=== PATIENT | female | born 1935 | race Caucasian/White ===

== ENCOUNTER 2017-04-15 11:22 | Emergency (ER) | payer MEDICARE, OTHER ==
--- NOTE | 2017-04-15 11:38 | EDM.PDOC ---
ED HPI GENERAL MEDICAL PROBLEM - General Chief Complaint: General Stated Complaint: FLU LIKE SYMPTOMS Time Seen by Provider: 04/15/17 11:33 Source of Information: Reports: Patient - History of Present Illness INITIAL COMMENTS - FREE TEXT/NARRATIVE: Esthela is a pleasant 81 year old female, with PMH of type II diabetes mellitus, hypertension, hypothyroidism, and hyperlipidemia, who presents to the ED via [facility] with complaints of weakness and fatigue. She reports she felt she has had a fever and chills. She called EMS as she was unable to get out of bed this morning. She reports she is extremely weak. EMS reports it took a lifting team to get her out of bed. She denies any chest pain, shortness of breath, nausea, vomiting, diarrhea, abdominal pain, dysuria, urinary frequency, urgency , flank pain, back pain, cough, and nasal congestion. She reports that other than her fatigue and weakness she does not have any complaints. She denies any pain. Has not had any symptoms beside the weakness the last few days. Does report she has incontinence and has to straight cath herself "every once in awhile." She is unable to further elaborate on why, but I assume she has issues with urinary retention. She is incontinent of urine at time of ER presentation. Family reports she has been very weak for about 4-5 days. The past few days she has not been eating or drinking much. She has not been confused. Denies any other issues. She has not taken anything at home prior to ED presentation. She has had a decreased appetite and has only drank tomato juice and water the past few days. reports she is not very mobile at baseline. She does ambulate some with a FWW, but hasnt been able to the last few days. She reports in the last few weeks she has been treated with antibiotics for an infection to her left finger. She reports she finished the course of antibiotics and the redness and swelling have improved. Patient has not been seen in our clinic. Records are unobtainable. 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 She is a poor historian. Onset Date: 04/12/17 Duration: Getting Worse Location: Reports: Generalized Associated Symptoms: Reports: Loss of Appetite, Weakness. Denies: Confusion, Chest Pain, Cough, cough w sputum, Diaphoresis, Fever/Chills, Headaches, Malaise , Nausea/Vomiting, Rash, Seizure, Shortness of Breath, Syncope - Related Data Allergies Allergy/AdvReac Type Severity Reaction Status Date / Time meperidine [From Demerol] Allergy Nausea Verified 04/15/17 11:48 Home Meds: Home Meds Atenolol 50 mg PO DAILY 04/15/17 [History] Levothyroxine [Synthroid] 100 mg PO DAILY 04/15/17 [History] Lisinopril 40 mg PO DAILY 04/15/17 [History] Simvastatin [Zocor] 10 mg PO BEDTIME 04/15/17 [History] carBAMazepine [Carbamazepine ER] 200 mg PO BID 04/15/17 [History] metFORMIN HCl [Metformin HCl ER] 500 mg PO DAILY 04/15/17 [History] Past Medical History Cardiovascular History: Reports: High Cholesterol, Hypertension Genitourinary History: Reports: Retention, Urinary, Urinary Incontinence Endocrine/Metabolic History: Reports: Diabetes, Type II, Hypothyroidism - Past Surgical History GI Surgical History: Reports: Appendectomy, Cholecystectomy Musculoskeletal Surgical History: Reports: Knee Replacement (bilateral) Social & Family History - Family History Family Medical History: Noncontributory - Tobacco Use Smoking Status *Q: Never Smoker - Caffeine Use Caffeine Use: Reports: Coffee - Alcohol Use Alcohol Use Frequency: Rarely - Recreational Drug Use Recreational Drug Use: No ED ROS GENERAL - Review of Systems Review Of Systems: See Below Constitutional: Reports: Fever, Chills, Weakness, Fatigue, Decreased Appetite HEENT: Reports: No Symptoms. Denies: Ear Pain, Rhinitis, Sinus Problem, Throat Pain, Vertigo, Vision Change Respiratory: Reports: No Symptoms. Denies: Shortness of Breath, Wheezing, Pleuritic Chest Pain, Cough, Sputum, Hemoptysis Cardiovascular: Reports: Blood Pressure Problem, Lightheadedness. Denies: Chest Pain, Edema, Palpitations, Syncope Endocrine: Reports: Fatigue, High Glucose GI/Abdominal: Reports: Anorexia, Decreased Appetite, Other (hernia). Denies: Abdominal Pain, Constipation, Diarrhea, Hematochezia, Melena, Nausea, Vomiting : Reports: Incontinence, Urinary Retention. Denies: Dysuria, Flank Pain, Frequency, Pain, Urgency Musculoskeletal: Reports: No Symptoms. Denies: Neck Pain, Back Pain Skin: Reports: No Symptoms. Denies: Cyanosis, Pallor, Diaphoresis Neurological: Reports: Dizziness, Difficulty Walking, Weakness. Denies: Confusion, Headache, Numbness, Pre-Existing Deficit, Syncope, Tingling, Change in Speech, Gait Disturbance Psychiatric: Reports: No Symptoms Hematologic/Lymphatic: Reports: No Symptoms Immunologic: Reports: No Symptoms ED EXAM, GENERAL - Physical Exam Exam: See Below Exam Limited By: No Limitations General Appearance: Alert, WD/WN, No Apparent Distress Eye Exam: Bilateral Eye: EOMI, PERRL Ears: Normal External Exam, Normal Canal, Hearing Grossly Normal, Normal TMs Ear Exam: Bilateral Ear: TM normal Nose: Normal Inspection, Normal Mucosa, No Blood Throat/Mouth: Normal Inspection, Normal Lips, Normal Teeth, Normal Gums, Normal Oropharynx, Normal Voice, No Airway Compromise Head: Atraumatic, Normocephalic Neck: Normal Inspection, Supple, Non-Tender, Full Range of Motion Respiratory/Chest: No Respiratory Distress, Lungs Clear, Normal Breath Sounds, No Accessory Muscle Use, Chest Non-Tender Cardiovascular: Normal Peripheral Pulses, Regular Rate, Rhythm, No Edema, No Gallop, No JVD, No Murmur, No Rub Peripheral Pulses: 2+: Dorsalis Pedis (L), Dorsalis Pedis (R) GI/Abdominal: Normal Bowel Sounds, Soft, Non-Tender, No Organomegaly, No Distention, No Abnormal Bruit, No Mass, Hernia Back Exam: Normal Inspection, Full Range of Motion. No: CVA Tenderness (L), CVA Tenderness (R) Extremities: Normal Inspection, Normal Range of Motion, Non-Tender, Normal Capillary Refill, No Pedal Edema Neurological: Alert, Oriented, CN II-XII Intact, Normal Cognition, Normal Gait, Normal Reflexes, No Motor/Sensory Deficits Psychiatric: Normal Affect, Normal Mood Skin Exam: Warm, Dry, Intact, Normal Color, No Rash, Erythema (to left finger tip), Other (dry, flaky) Lymphatic: No Adenopathy EKG INTERPRETATION Rhythm: NSR Ovid: Normal P-Wave: Present QRS: Normal ST-T: Normal QT: Normal Comparison: NA - No Prior EKG Course - Vital Signs Last Recorded V/S: Last Vital Signs Temp 98.3 F 04/15/17 11:23 Pulse 81 04/15/17 11:23 Resp 18 04/15/17 11:23 BP 143/81 H 04/15/17 11:23 Pulse Ox 95 04/15/17 11:23 - Orders/Labs/Meds Orders: Active Orders 24 hr Category Date Time Status EKG Documentation Completion [RC] STAT Care 04/15/17 14:00 Active Ang Chest [CT] Stat Exams 04/15/17 12:42 Taken Head wo Cont [CT] Stat Exams 04/15/17 12:42 Taken CULTURE BLOOD [BC] Stat Lab 04/15/17 11:45 Received CULTURE BLOOD [BC] Stat Lab 04/15/17 11:50 Received CULTURE URINE [RM] Stat Lab 04/15/17 13:25 Received Aspirin Med 04/15/17 14:00 Active 324 mg PO STAT Sodium Chloride 0.9% [Normal Saline] 500 ml Med 04/15/17 12:45 Active IV ASDIRECTED Blood Culture x2 Reflex Set [OM.PC] Stat Oth 04/15/17 11:34 Ordered Medication Orders Aspirin (Aspirin) 324 mg PO STAT ABUNDIO Last Admin: 04/15/17 14:40 Dose: 324 mg Sodium Chloride (Normal Saline) 500 mls @ 100 mls/hr IV ASDIRECTED ABUNDIO Last Admin: 04/15/17 13:23 Dose: 250 mls/hr Labs: Laboratory Tests 04/15/17 04/15/17 04/15/17 Range/Units 11:45 11:45 11:50 WBC 14.7 H (5.0-10.0) 10^3/uL RBC 4.39 (4.00-5.50) 10^6/uL Hgb 13.7 (12.0-16.0) g/dL Hct 40.0 (37.0-47.0) % MCV 91.1 (82.0-94.0) fL MCH 31.2 (27.0-32.0) pg MCHC 34.3 (33.0-38.0) g/dL RDW Coeff of Kennedy 13.0 (11.0-15.0) % Plt Count 123 L (150-400) 10^3/uL Add Manual Diff Yes Neutrophils % (Manual) 57 (35-85) % Band Neutrophils % 26 H (0-5) % Lymphocytes % (Manual) 5 L (21-55) % Monocytes % (Manual) 11 (2-12) % Metamyelocytes % 1 % Absolute Neutrophils 12.20 H (1.80-7.00) 10^3/uL Lymphocytes # (Manual) 0.74 L (1.00-4.80) 10^3/uL Monocytes # (Manual) 1.62 H (0.00-0.80) 10^3/uL PT (9.7-12.3) SEC INR (0.92-1.18) APTT (20.0-45.0) SEC D-Dimer, Quantitative > 10 H (0.00-0.50) Sodium 135 L (136-145) mEq/L Potassium 3.5 (3.5-5.0) mEq/L Chloride 101 (98-106) mEq/L Carbon Dioxide 22 (21-32) mmol/L BUN 32 H (7-18) mg/dL Creatinine 1.2 H (0.6-1.0) mg/dL Est Cr Clr Drug Dosing 39.73 mL/min Estimated GFR (MDRD) 43 L (>=60) mL/min Glucose 247 H (75-99) mg/dL Lactic Acid (0.4-2.0) mmol/L Calcium 8.4 (8.4-10.1) mg/dL Total Bilirubin 1.0 (0.0-1.0) mg/dL AST 79 H (15-37) U/L ALT 89 H (12-78) U/L Alkaline Phosphatase 141 H (46-116) U/L Troponin I 0.697 H (0.00-0.06) ng/mL C-Reactive Protein 17.3 H (0.2-0.8) mg/dL Total Protein 6.3 L (6.4-8.2) g/dL Albumin 2.7 L (3.4-5.0) g/dL Amylase 12 L (25-115) U/L Urine Color (YELLOW) Urine Appearance (CLEAR) Urine pH (4.5-8.0) Ur Specific [place] (1.003-1.020) Urine Protein (NEGATIVE) mg/dL Urine Glucose (UA) (NEGATIVE) mg/dL Urine Ketones (NEGATIVE) mg/dL Urine Occult Blood (NEGATIVE) Urine Nitrite (NEGATIVE) Urine Bilirubin (NEGATIVE) Urine Urobilinogen (0.2-1.0) EU/dL Ur Leukocyte Esterase (NEGATIVE) Urine RBC (0-5) /HPF Urine WBC (0-5) /HPF Urine WBC Clumps (NOT SEEN) /HPF Urine Bacteria (NOT SEEN) /HPF 04/15/17 04/15/17 04/15/17 Range/Units 11:50 13:25 14:35 WBC (5.0-10.0) 10^3/uL RBC (4.00-5.50) 10^6/uL Hgb (12.0-16.0) g/dL Hct (37.0-47.0) % MCV (82.0-94.0) fL MCH (27.0-32.0) pg MCHC (33.0-38.0) g/dL RDW Coeff of Kennedy (11.0-15.0) % Plt Count (150-400) 10^3/uL Add Manual Diff Neutrophils % (Manual) (35-85) % Band Neutrophils % (0-5) % Lymphocytes % (Manual) (21-55) % Monocytes % (Manual) (2-12) % Metamyelocytes % % Absolute Neutrophils (1.80-7.00) 10^3/uL Lymphocytes # (Manual) (1.00-4.80) 10^3/uL Monocytes # (Manual) (0.00-0.80) 10^3/uL PT (9.7-12.3) SEC INR (0.92-1.18) APTT (20.0-45.0) SEC D-Dimer, Quantitative (0.00-0.50) Sodium (136-145) mEq/L Potassium (3.5-5.0) mEq/L Chloride (98-106) mEq/L Carbon Dioxide (21-32) mmol/L BUN (7-18) mg/dL Creatinine (0.6-1.0) mg/dL Est Cr Clr Drug Dosing mL/min Estimated GFR (MDRD) (>=60) mL/min Glucose (75-99) mg/dL Lactic Acid 1.5 (0.4-2.0) mmol/L Calcium (8.4-10.1) mg/dL Total Bilirubin (0.0-1.0) mg/dL AST (15-37) U/L ALT (12-78) U/L Alkaline Phosphatase (46-116) U/L Troponin I 0.533 H (0.00-0.06) ng/mL C-Reactive Protein (0.2-0.8) mg/dL Total Protein (6.4-8.2) g/dL Albumin (3.4-5.0) g/dL Amylase (25-115) U/L Urine Color Yellow (YELLOW) Urine Appearance Cloudy (CLEAR) Urine pH 5.5 (4.5-8.0) Ur Specific [place] 1.015 (1.003-1.020) Urine Protein 100 H (NEGATIVE) mg/dL Urine Glucose (UA) 100 H (NEGATIVE) mg/dL Urine Ketones 80 H (NEGATIVE) mg/dL Urine Occult Blood Large H (NEGATIVE) Urine Nitrite Negative (NEGATIVE) Urine Bilirubin Small H (NEGATIVE) Urine Urobilinogen 2.0 H (0.2-1.0) EU/dL Ur Leukocyte Esterase Large H (NEGATIVE) Urine RBC 5-10 H (0-5) /HPF Urine WBC >100 H (0-5) /HPF Urine WBC Clumps Many H (NOT SEEN) /HPF Urine Bacteria Moderate H (NOT SEEN) /HPF 04/15/17 Range/Units 14:35 WBC (5.0-10.0) 10^3/uL RBC (4.00-5.50) 10^6/uL Hgb (12.0-16.0) g/dL Hct (37.0-47.0) % MCV (82.0-94.0) fL MCH (27.0-32.0) pg MCHC (33.0-38.0) g/dL RDW Coeff of Kennedy (11.0-15.0) % Plt Count (150-400) 10^3/uL Add Manual Diff Neutrophils % (Manual) (35-85) % Band Neutrophils % (0-5) % Lymphocytes % (Manual) (21-55) % Monocytes % (Manual) (2-12) % Metamyelocytes % % Absolute Neutrophils (1.80-7.00) 10^3/uL Lymphocytes # (Manual) (1.00-4.80) 10^3/uL Monocytes # (Manual) (0.00-0.80) 10^3/uL PT 11.3 (9.7-12.3) SEC INR 1.04 (0.92-1.18) APTT 24.2 (20.0-45.0) SEC D-Dimer, Quantitative (0.00-0.50) Sodium (136-145) mEq/L Potassium (3.5-5.0) mEq/L Chloride (98-106) mEq/L Carbon Dioxide (21-32) mmol/L BUN (7-18) mg/dL Creatinine (0.6-1.0) mg/dL Est Cr Clr Drug Dosing mL/min Estimated GFR (MDRD) (>=60) mL/min Glucose (75-99) mg/dL Lactic Acid (0.4-2.0) mmol/L Calcium (8.4-10.1) mg/dL Total Bilirubin (0.0-1.0) mg/dL AST (15-37) U/L ALT (12-78) U/L Alkaline Phosphatase (46-116) U/L Troponin I (0.00-0.06) ng/mL C-Reactive Protein (0.2-0.8) mg/dL Total Protein (6.4-8.2) g/dL Albumin (3.4-5.0) g/dL Amylase (25-115) U/L Urine Color (YELLOW) Urine Appearance (CLEAR) Urine pH (4.5-8.0) Ur Specific [place] (1.003-1.020) Urine Protein (NEGATIVE) mg/dL Urine Glucose (UA) (NEGATIVE) mg/dL Urine Ketones (NEGATIVE) mg/dL Urine Occult Blood (NEGATIVE) Urine Nitrite (NEGATIVE) Urine Bilirubin (NEGATIVE) Urine Urobilinogen (0.2-1.0) EU/dL Ur Leukocyte Esterase (NEGATIVE) Urine RBC (0-5) /HPF Urine WBC (0-5) /HPF Urine WBC Clumps (NOT SEEN) /HPF Urine Bacteria (NOT SEEN) /HPF Meds: Medications Generic Name Dose Route Start Last Admin Trade Name Freq PRN Reason Stop Dose Admin Aspirin 324 mg 04/15/17 14:00 04/15/17 14:40 Aspirin PO 324 mg STAT ABUNDIO Administration Sodium Chloride 500 mls @ 100 mls/hr 04/15/17 12:45 04/15/17 13:23 Normal Saline IV 250 mls/hr ASDIRECTED ABUNDIO Administration Discontinued Medications Generic Name Dose Route Start Last Admin Trade Name Freq PRN Reason Stop Dose Admin Ceftriaxone Sodium 1 gm 04/15/17 13:59 04/15/17 14:41 Rocephin IVPUSH 04/15/17 14:00 1 gm ONETIME ONE Administration Heparin Sodium (Porcine) Confirm 04/15/17 14:52 04/15/17 15:21 Heparin Sodium Administered 04/15/17 14:53 4,900 units Dose Administration 10,000 units .ROUTE .STK-MED ONE Heparin Sodium/Dextrose Confirm 04/15/17 14:36 04/15/17 15:20 Heparin 25,000 Units In D5w 500 Ml Administered 04/15/17 14:37 1,000 units Dose Administration 500 mls @ as directed .ROUTE .STK-MED ONE - Re-Assessments/Exams Free Text/Narrative Re-Assessment/Exam: Lab work, EKG, CTA Chest findings discussed with patient and family. Influenza negative. WBC elevated to 14.6. CRP 17.3. UA positive. Will get urine culture. Troponin elevated, 0.697. EKG shows sinus rhythm with PACs. CTA Chest does show right subsegmental PE. CT head negative. 500 mL NS bolus, rocephin, and 324 mg PO chewable aspirin administered. Repeat troponin 0.533. Discussed case with Dr. Harrington at [facility]. He accepted patient for transfer and recommended we start heparin gtt. Discussed risks and benefits of heparin gtt with patient and family, who voiced understanding of increased bleeding risk. They are agreeable to start heparin gtt. Heparin gtt initiated per protocol. Risks and benefits of transfer discussed with patient and family members. Risks of transfer include worsening of condition enroute, , and vehicle crash. Benefits of transfer include higher level of care and cardiology consultation if needed. Risks of nontransfer include worsening of condition, no specialized care. Benefits of nontransfer include stay close to home in a familiar environment. Family and patient voiced understanding and consent to transfer to [facility]. Departure - Departure Time of Disposition: 14:49 Disposition: DC/Tfer to Medicaid [facility] Clinical Impression: Elevated troponin I measurement, Pulmonary embolism on right, Generalized weakness, Acute renal insufficiency UTI (urinary tract infection) Qualifiers: Urinary tract infection type: site unspecified Hematuria presence: without hematuria Qualified Code(s): N39.0 - Urinary tract infection, site not specified Type II diabetes mellitus Qualifiers: Diabetes mellitus complication status: with hyperglycemia Diabetes mellitus senior care insulin use: without senior care use Qualified Code(s): E11.65 - Type 2 diabetes mellitus with hyperglycemia Hypertension Qualifiers: Hypertension type: essential hypertension Qualified Code(s): I10 - Essential ( primary) hypertension - Discharge Information Referrals: Velia Benítez [Primary Care Provider] - Forms: ED Department Discharge Additional Instructions: Transfer via [facility] to [facility] Dr. Harrington accepting patient for transfer Will be transferred to Progressive Care Unit room 428 Heparin gtt initiated prior to transfer. Bolus dose administered. Heparin infusing at a rate of 1000 u/hr. - Problem List & Annotations (1) UTI (urinary tract infection) SNOMED Code(s): 58017635 Code(s): N39.0 - URINARY TRACT INFECTION, SITE NOT SPECIFIED Status: Acute Current Visit: Yes Qualifiers: Urinary tract infection type: site unspecified Hematuria presence: without hematuria Qualified Code(s): N39.0 - Urinary tract infection, site not specified (2) Elevated troponin I measurement SNOMED Code(s): 142644475 Code(s): R74.8 - ABNORMAL LEVELS OF OTHER SERUM ENZYMES Status: Acute Current Visit: Yes (3) Pulmonary embolism on right SNOMED Code(s): 73014359 Code(s): I26.99 - OTHER PULMONARY EMBOLISM WITHOUT ACUTE COR PULMONALE Status: Acute Current Visit: Yes (4) Generalized weakness SNOMED Code(s): 98443166 Code(s): R53.1 - WEAKNESS Status: Acute Current Visit: Yes (5) Acute renal insufficiency SNOMED Code(s): 062018313 Code(s): N28.9 - DISORDER OF KIDNEY AND URETER, UNSPECIFIED Status: Acute Current Visit: Yes (6) Type II diabetes mellitus SNOMED Code(s): 15553191 Code(s): E11.9 - TYPE 2 DIABETES MELLITUS WITHOUT COMPLICATIONS Status: Acute Current Visit: Yes Qualifiers: Diabetes mellitus complication status: with hyperglycemia Diabetes mellitus senior care insulin use: without intermediate school teacher use Qualified Code(s): E11.65 - Type 2 diabetes mellitus with hyperglycemia (7) Hypertension SNOMED Code(s): 40099387 Code(s): I10 - ESSENTIAL (PRIMARY) HYPERTENSION Status: Acute Current Visit: Yes Qualifiers: Hypertension type: essential hypertension Qualified Code(s): I10 - Essential (primary) hypertension - Problem List Review Problem List Initiated/Reviewed/Updated: Yes - My Orders Last 24 Hours: My Active Orders 04/15/17 11:34 Blood Culture x2 Reflex Set [OM.PC] Stat 04/15/17 11:45 CULTURE BLOOD [BC] Stat 04/15/17 11:50 CULTURE BLOOD [BC] Stat 04/15/17 12:42 Ang Chest [CT] Stat Head wo Cont [CT] Stat 04/15/17 12:45 Sodium Chloride 0.9% [Normal Saline] 500 ml IV ASDIRECTED 04/15/17 13:25 CULTURE URINE [RM] Stat 04/15/17 14:00 EKG Documentation Completion [RC] STAT Aspirin 324 mg PO STAT - Assessment/Plan Last 24 Hours: My Active Orders 04/15/17 11:34 Blood Culture x2 Reflex Set [OM.PC] Stat 04/15/17 11:45 CULTURE BLOOD [BC] Stat 04/15/17 11:50 CULTURE BLOOD [BC] Stat 04/15/17 12:42 Ang Chest [CT] Stat Head wo Cont [CT] Stat 04/15/17 12:45 Sodium Chloride 0.9% [Normal Saline] 500 ml IV ASDIRECTED 04/15/17 13:25 CULTURE URINE [RM] Stat 04/15/17 14:00 EKG Documentation Completion [RC] STAT Aspirin 324 mg PO STAT
[2017-04-15] MEDS ORDERED: Sodium Chloride 0.9% 500 ML IV SCH (12:45)
[2017-04-15] MEDS ORDERED: cefTRIAXone 1 GM Vial IVPUSH ONE (13:59)
[2017-04-15] MEDS ORDERED: Aspirin 81 MG Tab.Chew PO SCH (14:00)
[2017-04-15] MEDS ORDERED: Heparin Sodium/D5W 500 ML ONE (14:36)
[2017-04-15] MEDS ORDERED: Heparin Sodium 10,000 Units/1 ML MDV ONE (14:52)
== END 2017-04-15 15:25 ==
LOC: CC.ED 11:22
DX: I26.99 Other pulmonary embolism without acute cor pulmonale (principal); R53.1 Weakness; N39.0 Urinary tract infection, site not specified; N28.9 Disorder of kidney and ureter, unspecified; R79.89 Other specified abnormal findings of blood chemistry; E11.65 Type 2 diabetes mellitus with hyperglycemia; E03.9 Hypothyroidism, unspecified; E78.00 Pure hypercholesterolemia, unspecified; I10 Essential (primary) hypertension; Z88.8 Allergy status to other drugs, medicaments and biological substances; Z79.899 Other long term (current) drug therapy; Z79.84 Long term (current) use of oral hypoglycemic drugs
CPT/HCPCS: 36415; 51701; 70450; 71275; 80053; 81001; 82150; 83605; 84484; 85025; 85379; 85610; 85730; 86140; 87040; 87086; 87088; 87186; 87804; 93005; 96361; 96374; 96375; 96376; 99285; A9270-GY; J0696; J1644; J7040; Q9967

== ENCOUNTER 2017-04-25 13:36 | Inpatient (IN) | payer MEDICARE, OTHER ==
--- NOTE | 2017-04-25 17:26 | PCM.HP ---
H&P History of Present Illness - General Date of Service: 04/25/17 Admit Problem/Dx: Gram Negative Bacteremia Pulmonary Embolism- Right Source of Information: Patient History Limitations: Reports: No Limitations - History of Present Illness Initial Comments - Free Text/Narative: Esthela is a 81 year old female, with a past medical history of type II DM, hypertension, neurogenic bladder, trigeminal neuralgia, hypothyroidism, and hyperlipidemia, who is being admitted to [facility] bed for continued physical therapy and strengthening. She originally presented to our local ED on 04/15/2017 to [facility] for UTI, ? NSTEMI, and right pulmonary embolism. Her complaint at that time was generalized weakness, fatigue, and fever and chills. Patient had a positive D- dimer and elevated troponin with creatinine of 1.2, WBC of 14.7 with 26% bands. UA was positive. She had a CTA of cehst due to positive D-Dimer which shows subsegmental PE in the RLL. She had a negative head CT. Heparin gtt was started. EKG showed no acute ST/T wave abnormalities. Patient denied any history of chest pain, shortness of breath, near syncope, palpitations, abdominal pain, or urinary symptoms. She was transferred to [facility]. Upon admission, cardiology was consulted and felt that NSTEMI was unlikely diagnosis given other underlying etiologies of potential troponin elevation. A ARIAS showed normal EF of 55-60% and normal RV, so NSTEMI was ruled out. She had mild abnormality of the left ventricular diastolic function. No major valvular abnormalities. Her urine and blood cultures grew gram negative rods. ID was consulted and treated her with IV Zosyn and Vancomycin, later switching her to oral Cipro. On 04/19/[address] of abd/pelvis, which showed left pyelonephritis with moderate dilatation and inflammatory changes. It also showed questionable chronic obstructive choledocholithiasis and recommended an ERCP/MRCP. Gastroenterology was consulted given these findings. Per patient preference, she will have this done as out patient once strength returns. Patient had an episode of significant hypotension and was found to have hemorrhagic shock. Her hemoglobin dropped from 12 to 6.9. She was found to have a retroperitoneal bleed, so heparin gtt was stopped. Patient was transfused 3 units PRBCs, FFPs, and platelets. Anticoagulation was not restarted due to risks outweighing benefits. She will need to be on oral ciprofloxacin until 04/26/2017 for urosepsis. Physical therapy will be consulted for strengthening. Symptom Onset Date: 04/12/17 Duration of Symptoms: Reports: Improving - Related Data Allergies/Adverse Reactions: Allergies Allergy/AdvReac Type Severity Reaction Status Date / Time meperidine [From Demerol] Allergy Nausea Verified 04/15/17 11:48 Home Medications: Home Meds Levothyroxine [Synthroid] 100 mg PO DAILY 04/15/17 [History] Lisinopril 40 mg PO DAILY 04/15/17 [History] carBAMazepine [Carbamazepine ER] 200 mg PO BID 04/15/17 [History] metFORMIN HCl [Metformin HCl ER] 500 mg PO DAILY 04/15/17 [History] Calcium Carbonate/Vitamin D3 [Calcium 600 + Vit D 400 Tablet] 1 each PO DAILY [History] Cinnamon Bark [Cinnamon] 500 mg PO DAILY 04/25/17 [History] Ciprofloxacin [Cipro XR 500 MG Tablet] 500 mg PO BID 04/25/17 [History] Folic Acid 1 mg PO BID 04/25/17 [History] Insulin Aspart [Novolog] 7 unit SQ TIDMEALS 04/25/17 [History] Insulin Glarg,Human.Rec.Analog [Lantus] 20 unit SQ BEDTIME 04/25/17 [History] Metoprolol Succinate [Toprol Xl] 50 mg PO DAILY 04/25/17 [History] atorvaSTATin [Lipitor] 40 mg PO DAILY 04/25/17 [History] Past Medical History HEENT History: Reports: Impaired Vision Cardiovascular History: Reports: Blood Clots/VTE/DVT, High Cholesterol, Hypertension Respiratory History: Reports: PE Genitourinary History: Reports: Retention, Urinary, Urinary Incontinence Musculoskeletal History: Reports: Arthritis Endocrine/Metabolic History: Reports: Diabetes, Type II, Hypothyroidism Hematologic History: Reports: Blood Transfusion(s) - Past Surgical History GI Surgical History: Reports: Appendectomy, Cholecystectomy Musculoskeletal Surgical History: Reports: Knee Replacement Social & Family History - Family History Family Medical History: Noncontributory - Tobacco Use Smoking Status *Q: Never Smoker - Caffeine Use Caffeine Use: Reports: Coffee - Recreational Drug Use Recreational Drug Use: No H&P Review of Systems - Review of Systems: Review Of Systems: ROS reveals no pertinent complaints other than HPI. General: Reports: Weakness, Fatigue. Denies: Fever, Chills HEENT: Reports: No Symptoms Pulmonary: Reports: No Symptoms. Denies: Shortness of Breath, Cough Cardiovascular: Reports: No Symptoms Gastrointestinal: Reports: No Symptoms Genitourinary: Reports: No Symptoms Musculoskeletal: Reports: No Symptoms Skin: Reports: Bruising Psychiatric: Reports: Depression Neurological: Reports: Difficulty Walking, Weakness Hematologic/Lymphatic: Reports: No Symptoms Immunologic: Reports: No Symptoms Exam - Exam Exam: See Below - Vital Signs Vital Signs: Last Vital Signs Temp 99.5 F 04/25/17 14:55 Pulse 90 04/25/17 14:55 Resp 20 04/25/17 14:55 BP 148/68 H 04/25/17 14:55 Pulse Ox 95 04/25/17 14:55 Weight: 215 lb 2.738 oz - Exam Quality Assessment: Urinary Catheter General: Alert, Oriented, 4 Neck: Supple, Trachea Midline, 2 Lungs: Clear to Auscultation, Normal Respiratory Effort Cardiovascular: Regular Rate, Regular Rhythm GI/Abdominal Exam: Normal Bowel Sounds, Soft, Non-Tender, No Organomegaly, No Distention, No Abnormal Bruit, No Mass, Pelvis Stable Back Exam: Normal Inspection, Full Range of Motion, NT Extremities: Normal Range of Motion, Normal Capillary Refill, Pedal Edema Peripheral Pulses: 2+: Dorsalis Pedis (L), Dorsalis Pedis (R) Skin: Ecchymosis Neurological: Cranial Nerves Intact, Reflexes Equal Bilateral Neuro Extensive - Mental Status: Alert, Oriented x3, Normal Cognition Psychiatric: Alert, Depressed *Q Meaningful Use (ADM) - VTE *Q VTE Criteria *Q: - Stroke *Q Stroke Criteria *Q: - AMI *Q AMI Criteria *Q: - Problem List (1) Gram-negative bacteremia SNOMED Code(s): 660750210815 ICD Code: R78.81 - BACTEREMIA Status: Acute Current Visit: Yes (2) Generalized weakness SNOMED Code(s): 68482178 ICD Code: R53.1 - WEAKNESS Status: Acute Current Visit: No (3) Hypertension SNOMED Code(s): 96516411 ICD Code: I10 - ESSENTIAL (PRIMARY) HYPERTENSION Status: Acute Current Visit: No Qualifiers: Hypertension type: essential hypertension Qualified Code(s): I10 - Essential (primary) hypertension (4) Pulmonary embolism on right SNOMED Code(s): 85257304 ICD Code: I26.99 - OTHER PULMONARY EMBOLISM WITHOUT ACUTE COR PULMONALE Status: Acute Current Visit: No (5) Type II diabetes mellitus SNOMED Code(s): 62846640 ICD Code: E11.9 - TYPE 2 DIABETES MELLITUS WITHOUT COMPLICATIONS Status: Acute Current Visit: No Qualifiers: Diabetes mellitus complication status: with hyperglycemia Diabetes mellitus nursing home insulin use: without intermediate frame tender use Qualified Code(s): E11.65 - Type 2 diabetes mellitus with hyperglycemia (6) Neurogenic bladder SNOMED Code(s): 962095172 ICD Code: N31.9 - NEUROMUSCULAR DYSFUNCTION OF BLADDER, UNSPECIFIED Status : Chronic Current Visit: Yes Problem List Initiated/Reviewed/Updated: Yes Assessment/Plan Comment:: Urosepsis - Continue Ciprofloxacin until 04/26/2017 per ID recommendations Hypertension - Continue home meds Hypothyroidism - Continue synthroid Type II Diabetes Mellitus - SSI - Will restart metformin Pulmonary Embolism- RLL - hold anticoagulation given retroperitoneal bleed and asymptomatic nature Neurogenic Bladder - Continue indwelling catheter Generalized Weakness - PT referral - Encourage activity
[2017-04-25] MEDS ORDERED: Sodium Chloride 0.9% 10 ML Syringe FLUSH PRN (17:28)
[2017-04-25] MEDS ORDERED: Ondansetron 4 MG/2 ML SDV IV PRN (17:28)
[2017-04-25] MEDS ORDERED: Temazepam 15 MG Cap PO PRN (17:28)
[2017-04-25] MEDS ORDERED: Magnesium Hydroxide 400 MG/5 ML Susp 30 ML Cup PO PRN (17:28)
[2017-04-25] MEDS ORDERED: [UNRECOGNIZED DRUG - REMARK] PO SCH (20:00)
[2017-04-25] MEDS: Insulin Detemir 100 Units/ML 3 ML Pen SUBCUT SCH (21:12)
[2017-04-25] MEDS: Ciprofloxacin 500 MG Tab PO SCH (21:12)
[2017-04-25] MEDS ORDERED: carBAMazepine 200 MG Tab PO ONE (21:15)
[2017-04-26 07:19] LABS: CHLORIDE,CL 101 mEq/L (98-106); SODIUM,NA 134 mEq/L (136-145)
[2017-04-26] MEDS: Levothyroxine 100 MCG Tab PO SCH (07:21)
[2017-04-26] MEDS: Ciprofloxacin 500 MG Tab PO SCH ×2 (07:54→20:26)
[2017-04-26] MEDS: metFORMIN 500 MG Tab.ER PO SCH (07:54)
[2017-04-26] MEDS: atorvaSTATin 20 MG Tab PO SCH (07:54)
[2017-04-26] MEDS: Lisinopril 20 MG Tab PO SCH (07:54)
[2017-04-26] MEDS: Metoprolol Succinate 25 MG Tab.ER PO SCH (07:55)
[2017-04-26] MEDS ORDERED: Levothyroxine 100 MCG Tab PO SCH (08:00)
[2017-04-26] MEDS: Insulin Aspart 100 Units/ML 3 ML Pen SUBCUT SCH ×3 (08:28→18:12)
[2017-04-26] MEDS: Insulin Detemir 100 Units/ML 3 ML Pen SUBCUT SCH (20:27)
[2017-04-27] MEDS: Levothyroxine 100 MCG Tab PO SCH (08:00)
[2017-04-27] MEDS: Metoprolol Succinate 25 MG Tab.ER PO SCH (08:13)
[2017-04-27] MEDS: metFORMIN 500 MG Tab.ER PO SCH (08:13)
[2017-04-27] MEDS: Lisinopril 20 MG Tab PO SCH (08:13)
[2017-04-27] MEDS: Ciprofloxacin 500 MG Tab PO SCH ×2 (08:13→19:53)
[2017-04-27] MEDS: atorvaSTATin 20 MG Tab PO SCH (08:14)
[2017-04-27] MEDS: Insulin Aspart 100 Units/ML 3 ML Pen SUBCUT SCH ×3 (08:16→17:49)
[2017-04-27] MEDS: Insulin Detemir 100 Units/ML 3 ML Pen SUBCUT SCH (19:58)
[2017-04-28] MEDS: Levothyroxine 100 MCG Tab PO SCH (06:52)
[2017-04-28] MEDS: Ciprofloxacin 500 MG Tab PO SCH ×2 (08:14→20:17)
[2017-04-28] MEDS: Metoprolol Succinate 25 MG Tab.ER PO SCH (08:14)
[2017-04-28] MEDS: atorvaSTATin 20 MG Tab PO SCH (08:14)
[2017-04-28] MEDS: Lisinopril 20 MG Tab PO SCH (08:14)
[2017-04-28] MEDS: metFORMIN 500 MG Tab.ER PO SCH (08:14)
[2017-04-28] MEDS: Insulin Aspart 100 Units/ML 3 ML Pen SUBCUT SCH ×3 (08:15→17:28)
[2017-04-28] MEDS: CARBAMAZEPINE 200 MG PO SCH ×5 (16:23→20:19)
[2017-04-28] MEDS: Insulin Detemir 100 Units/ML 3 ML Pen SUBCUT SCH (20:19)
[2017-04-29] MEDS: Levothyroxine 100 MCG Tab PO SCH (07:32)
[2017-04-29] MEDS: atorvaSTATin 20 MG Tab PO SCH (07:32)
[2017-04-29] MEDS: Lisinopril 20 MG Tab PO SCH (07:32)
[2017-04-29] MEDS: Metoprolol Succinate 25 MG Tab.ER PO SCH (07:33)
[2017-04-29] MEDS: Insulin Aspart 100 Units/ML 3 ML Pen SUBCUT SCH ×3 (07:33→17:11)
[2017-04-29] MEDS: Ciprofloxacin 500 MG Tab PO SCH ×2 (07:33→20:33)
[2017-04-29] MEDS: metFORMIN 500 MG Tab.ER PO SCH (07:33)
[2017-04-29] MEDS: CARBAMAZEPINE 200 MG PO SCH ×2 (07:34→20:35)
[2017-04-29] MEDS: Insulin Detemir 100 Units/ML 3 ML Pen SUBCUT SCH (20:35)
[2017-04-30] MEDS: Levothyroxine 100 MCG Tab PO SCH (06:14)
[2017-04-30] MEDS: Insulin Aspart 100 Units/ML 3 ML Pen SUBCUT SCH ×3 (07:25→17:07)
[2017-04-30] MEDS: Lisinopril 20 MG Tab PO SCH (07:26)
[2017-04-30] MEDS: Metoprolol Succinate 25 MG Tab.ER PO SCH (07:26)
[2017-04-30] MEDS: metFORMIN 500 MG Tab.ER PO SCH (07:26)
[2017-04-30] MEDS: CARBAMAZEPINE 200 MG PO SCH ×2 (07:26→20:32)
[2017-04-30] MEDS: atorvaSTATin 20 MG Tab PO SCH (07:26)
[2017-04-30] MEDS: Insulin Detemir 100 Units/ML 3 ML Pen SUBCUT SCH (20:32)
[2017-05-01] MEDS: Levothyroxine 100 MCG Tab PO SCH (06:52)
[2017-05-01] MEDS: Acetaminophen/HYDROcodone 325-5 MG Tab PO PRN (06:54)
[2017-05-01] MEDS: Metoprolol Succinate 25 MG Tab.ER PO SCH (07:51)
[2017-05-01] MEDS: metFORMIN 500 MG Tab.ER PO SCH (07:52)
[2017-05-01] MEDS: Lisinopril 20 MG Tab PO SCH (07:52)
[2017-05-01] MEDS: CARBAMAZEPINE 200 MG PO SCH ×2 (07:52→20:33)
[2017-05-01] MEDS: Insulin Aspart 100 Units/ML 3 ML Pen SUBCUT SCH ×3 (07:52→17:38)
[2017-05-01] MEDS: atorvaSTATin 20 MG Tab PO SCH (07:52)
[2017-05-01 10:02] LABS: CHLORIDE,CL 103 mEq/L (98-106); SODIUM,NA 136 mEq/L (136-145)
[2017-05-01] MEDS: Insulin Detemir 100 Units/ML 3 ML Pen SUBCUT SCH (20:32)
[2017-05-01] MEDS: Sertraline 100 MG Tab PO SCH (20:33)
[2017-05-02] MEDS: Acetaminophen/HYDROcodone 325-5 MG Tab PO PRN (06:30)
[2017-05-02] MEDS: Levothyroxine 100 MCG Tab PO SCH (06:30)
[2017-05-02] MEDS: atorvaSTATin 20 MG Tab PO SCH (07:25)
[2017-05-02] MEDS: metFORMIN 500 MG Tab.ER PO SCH (07:25)
[2017-05-02] MEDS: Lisinopril 20 MG Tab PO SCH (07:25)
[2017-05-02] MEDS: Metoprolol Succinate 25 MG Tab.ER PO SCH (07:25)
[2017-05-02] MEDS: CARBAMAZEPINE 200 MG PO SCH ×2 (07:26→19:30)
[2017-05-02] MEDS: Insulin Aspart 100 Units/ML 3 ML Pen SUBCUT SCH ×3 (08:07→19:29)
[2017-05-02] MEDS: Sertraline 100 MG Tab PO SCH (19:29)
[2017-05-02] MEDS: Insulin Detemir 100 Units/ML 3 ML Pen SUBCUT SCH (19:30)
[2017-05-03] MEDS: Levothyroxine 100 MCG Tab PO SCH (06:20)
[2017-05-03] MEDS: atorvaSTATin 20 MG Tab PO SCH (07:41)
[2017-05-03] MEDS: metFORMIN 500 MG Tab.ER PO SCH (07:41)
[2017-05-03] MEDS: Lisinopril 20 MG Tab PO SCH (07:42)
[2017-05-03] MEDS: Metoprolol Succinate 25 MG Tab.ER PO SCH (07:42)
[2017-05-03] MEDS: CARBAMAZEPINE 200 MG PO SCH ×3 (07:44→19:46)
[2017-05-03] MEDS: Insulin Aspart 100 Units/ML 3 ML Pen SUBCUT SCH ×3 (08:11→17:37)
[2017-05-03] MEDS: Sertraline 100 MG Tab PO SCH (19:44)
[2017-05-03] MEDS: Insulin Detemir 100 Units/ML 3 ML Pen SUBCUT SCH (19:45)
[2017-05-04] MEDS: Levothyroxine 100 MCG Tab PO SCH (06:52)
[2017-05-04] MEDS: Metoprolol Succinate 25 MG Tab.ER PO SCH (08:48)
[2017-05-04] MEDS: Lisinopril 20 MG Tab PO SCH (08:48)
[2017-05-04] MEDS: atorvaSTATin 20 MG Tab PO SCH (08:49)
[2017-05-04] MEDS: metFORMIN 500 MG Tab.ER PO SCH (08:49)
[2017-05-04] MEDS: CARBAMAZEPINE 200 MG PO SCH ×2 (08:50→20:06)
[2017-05-04] MEDS: Insulin Aspart 100 Units/ML 3 ML Pen SUBCUT SCH ×3 (08:53→17:56)
[2017-05-04] MEDS: Sertraline 100 MG Tab PO SCH (20:07)
[2017-05-04] MEDS: Insulin Detemir 100 Units/ML 3 ML Pen SUBCUT SCH (20:08)
[2017-05-05] MEDS: Levothyroxine 100 MCG Tab PO SCH (06:27)
[2017-05-05] MEDS: metFORMIN 500 MG Tab.ER PO SCH (07:33)
[2017-05-05] MEDS: Metoprolol Succinate 25 MG Tab.ER PO SCH (07:33)
[2017-05-05] MEDS: Lisinopril 20 MG Tab PO SCH (07:34)
[2017-05-05] MEDS: atorvaSTATin 20 MG Tab PO SCH (07:34)
[2017-05-05] MEDS: CARBAMAZEPINE 200 MG PO SCH ×2 (07:36→19:38)
[2017-05-05] MEDS: Insulin Aspart 100 Units/ML 3 ML Pen SUBCUT SCH ×3 (07:38→17:24)
[2017-05-05] MEDS: Acetaminophen 325 MG Tab PO PRN (07:40)
[2017-05-05] MEDS: Ondansetron 4 MG Tab.DIS PO PRN ×2 (08:22→19:47)
[2017-05-05] MEDS: Sertraline 100 MG Tab PO SCH (19:38)
[2017-05-05] MEDS: Insulin Detemir 100 Units/ML 3 ML Pen SUBCUT SCH (19:40)
[2017-05-06] MEDS: atorvaSTATin 20 MG Tab PO SCH (07:36)
[2017-05-06] MEDS: Lisinopril 20 MG Tab PO SCH (07:36)
[2017-05-06] MEDS: metFORMIN 500 MG Tab.ER PO SCH (07:36)
[2017-05-06] MEDS: Metoprolol Succinate 25 MG Tab.ER PO SCH (07:36)
[2017-05-06] MEDS: Insulin Aspart 100 Units/ML 3 ML Pen SUBCUT SCH ×3 (07:38→17:34)
[2017-05-06] MEDS: CARBAMAZEPINE 200 MG PO SCH ×2 (07:38→19:49)
[2017-05-06] MEDS: Levothyroxine 100 MCG Tab PO SCH (07:40)
[2017-05-06] MEDS: Sertraline 100 MG Tab PO SCH (19:49)
[2017-05-06] MEDS: Insulin Detemir 100 Units/ML 3 ML Pen SUBCUT SCH (19:51)
[2017-05-06] MEDS: Nystatin Crm 30 GM Tube TOP SCH (22:30)
[2017-05-07] MEDS: metFORMIN 500 MG Tab.ER PO SCH (07:39)
[2017-05-07] MEDS: Metoprolol Succinate 25 MG Tab.ER PO SCH (07:39)
[2017-05-07] MEDS: Levothyroxine 100 MCG Tab PO SCH (07:39)
[2017-05-07] MEDS: Lisinopril 20 MG Tab PO SCH (07:39)
[2017-05-07] MEDS: atorvaSTATin 20 MG Tab PO SCH (07:40)
[2017-05-07] MEDS: Nystatin Crm 30 GM Tube TOP SCH ×2 (07:42→21:37)
[2017-05-07] MEDS: CARBAMAZEPINE 200 MG PO SCH ×2 (07:42→21:36)
[2017-05-07] MEDS ORDERED: Nystatin Crm 30 GM Tube TOP SCH (08:00)
[2017-05-07] MEDS: Insulin Aspart 100 Units/ML 3 ML Pen SUBCUT SCH ×3 (08:09→17:44)
[2017-05-07] MEDS: Insulin Detemir 100 Units/ML 3 ML Pen SUBCUT SCH (21:36)
[2017-05-07] MEDS: Sertraline 100 MG Tab PO SCH (21:37)
[2017-05-07] MEDS: Acetaminophen 325 MG Tab PO PRN (21:38)
[2017-05-08] MEDS: Metoprolol Succinate 25 MG Tab.ER PO SCH (07:57)
[2017-05-08] MEDS: atorvaSTATin 20 MG Tab PO SCH (07:57)
[2017-05-08] MEDS: metFORMIN 500 MG Tab.ER PO SCH (07:57)
[2017-05-08] MEDS: Lisinopril 20 MG Tab PO SCH (07:57)
[2017-05-08] MEDS: Levothyroxine 100 MCG Tab PO SCH (07:58)
[2017-05-08] MEDS: Nystatin Crm 30 GM Tube TOP SCH (07:58)
[2017-05-08] MEDS: Insulin Aspart 100 Units/ML 3 ML Pen SUBCUT SCH (07:59)
[2017-05-08] MEDS: CARBAMAZEPINE 200 MG PO SCH (07:59)
--- NOTE | 2017-05-10 10:29 | PCM.DCSUM1 ---
Discharge Summary - Hospital Course Free Text/Narrative:: Patient admitted to swing bed from [facility]. Patient had initially presented to [facility] ER with complaints of weakness, fatigue and fevers. Had not been active for over 3 days. She was found to have a UTI and subsegmental PE in the RLL. Head CT was negative. She did have acute ST/T wave abnormalities with an elevated troponin and concerns of NSTEMI. Heparin drip was started and she was transferred to [facility]. She had a ARIAS which showed normal EF of 55-60 % and normal RV so IA was ruled out. No valve abnormalities. Urine was positive for gram negative rods, thus was placed on Vancomycin and Zosyn, later switched to Cipro. Patient did have a CT scan of her abdomen/pelvis which showed a left pyelonepthritis with moderate dilatation and inflammatory changes. Showed questionable choledocholithiasis and recommended and ERCP. Patient opted to pursue this as an outpatient. Patient had an episode of significant hypotension, hemoglobin dropped from 12 to 6.9. Was found to have a retroperitoneal bleed so the heparin drip was stopped. Was given 3 units of PRBCs, FFPs, and platelets. Anticoagulation was not started for the PE as the benefit did not outweigh the risk. Was transferred back here to [facility] for strengthening. - Discharge Data Discharge Date: 05/08/17 Discharge Disposition: DC/Tfer to [facility] Condition: Fair - Patient Summary/Data Complications: none Consults: Consultations 04/25/17 17:28 PT Evaluation and Treatment [CONS] Routine 04/26/17 08:48 Consult to Sixth Grade Teacher [CONS] Routine Hospital Course: Patient had minimal progress during stay. Continues to require the EZ stand as bears weight for short periods of time, not ambulating. Some progress with PT but very slow. Patient has not had much motivation to work with PT or nursing, felt it was related to depression so was started on Zoloft. She has a flat affect. When questioned about her ability to improve, states "it is what it is , just can't do it". Family was involved in conversations about this. Her ultimate goal is to return home. Due to minimal progress, transfer to the nursing was discussed and family opted to admit her to [facility] for ongoing physical and occupational therapy. Patient's appetite is poor, also felt to be somewhat related to her depression. She does not engage much with staff. Discharge to [facility] for ongoing therapy. - Patient Instructions Diet: Diabetic Diet Activity: As Tolerated - Discharge Plan Prescriptions/Med Rec: Acetaminophen/HYDROcodone [[place] 325-5 MG] 1 tab PO Q4H PRN #30 tablet PRN Reason: Pain (Moderate 4-6) Nystatin [Nystatin Crm] 30 gm TOP BID #45 tube Sertraline [Zoloft] 50 mg PO BEDTIME #30 tablet Home Medications: Home Meds Levothyroxine [Synthroid] 100 mcg PO DAILY 04/15/17 [History] Lisinopril 40 mg PO DAILY 04/15/17 [History] carBAMazepine [Carbamazepine ER] 200 mg PO BID 04/15/17 [History] metFORMIN HCl [Metformin HCl ER] 500 mg PO DAILY 04/15/17 [History] Calcium Carbonate/Vitamin D3 [Calcium 600-Vit D3 400 Tablet] 1 each PO DAILY [History] Cinnamon Bark [Cinnamon] 500 mg PO DAILY 04/25/17 [History] Folic Acid 1 mg PO BID 04/25/17 [History] Insulin Aspart [Novolog Flexpen] 7 unit SQ TIDMEALS 04/25/17 [History] Insulin Glarg,Human.Rec.Analog [Lantus] 20 unit SQ BEDTIME 04/25/17 [History] Metoprolol Succinate [Toprol Xl] 50 mg PO DAILY 04/25/17 [History] atorvaSTATin [Lipitor] 40 mg PO DAILY 04/25/17 [History] Acetaminophen/HYDROcodone [[place] 325-5 MG] 1 tab PO Q4H PRN #30 tablet 05/08/17 [Rx] Nystatin [Nystatin Crm] 30 gm TOP BID #45 tube 05/08/17 [Rx] Sertraline [Zoloft] 50 mg PO BEDTIME #30 tablet 05/08/17 [Rx] - Discharge Summary/Plan Comment DC Time >30 min.: Yes Discharge Summary/Plan Comment: Transfer to [facility]. Will continue with PT and OT. Zoloft for depression. Time with patient 20 minutes discussing history, current status and plan. Family is hoping to make adaptations to her home in order for her to return there, ie. wheelchair accessibilities, chair lift, etc. Time with orders 10 minutes Time with documentation 10 minutes. - General Info Date of Service: 05/08/17 Admission Dx/Problem (Free Text: Gram Negative Bacteremia Pulmonary Embolism- Right Functional Status: Reports: Pain Controlled, Tolerating Diet. Denies: Ambulating - Review of Systems General: Reports: Weakness, Fatigue, Malaise HEENT: Reports: No Symptoms Pulmonary: Denies: Shortness of Breath, Cough Cardiovascular: Denies: Chest Pain, Lightheadedness Gastrointestinal: Denies: Abdominal Pain, Nausea, Vomiting Genitourinary: Reports: No Symptoms - Patient Data Vitals - Most Recent: Last Vital Signs Temp 98.4 F 05/08/17 07:41 Pulse 79 05/08/17 07:57 Resp 20 05/08/17 07:41 BP 143/73 H 05/08/17 07:57 Pulse Ox 98 05/08/17 07:41 Weight - Most Recent: 221 lb 1.978 oz Med Orders - Current: Current Medications Discontinued Medications Acetaminophen (Tylenol) 650 mg PO Q4H PRN PRN Reason: Pain (Mild 1-3)/fever Last Admin: 05/07/17 21:38 Dose: 650 mg Hydrocodone Bitart/Acetaminophen ([place] 325-5 Mg) 1 tab PO Q4H PRN PRN Reason: Pain (moderate 4-6) Last Admin: 05/02/17 06:30 Dose: 1 tab Atorvastatin Calcium (Lipitor) 40 mg PO DAILY [facility] Last Admin: 05/08/17 07:57 Dose: 40 mg Carbamazepine (Tegretol Tab) 200 mg PO ONETIME ONE Stop: 04/25/17 21:16 Last Admin: 04/25/17 21:12 Dose: 200 mg Ciprofloxacin (Ciprofloxacin Hcl) 500 mg PO BID [facility] Stop: 04/29/17 21:01 Last Admin: 04/29/17 20:33 Dose: 500 mg Insulin Aspart (Novolog) 7 unit SUBCUT TIDMEALS [facility] Last Admin: 05/08/17 07:59 Dose: 7 units Insulin Detemir (Levemir) 20 unit SUBCUT BEDTIME [facility] Last Admin: 05/07/17 21:36 Dose: 20 unit Levothyroxine Sodium (Synthroid) 100 mcg PO 0700 [facility] Last Admin: 05/08/17 07:58 Dose: 100 mcg Lisinopril (Prinivil) 40 mg PO DAILY [facility] Last Admin: 05/08/17 07:57 Dose: 40 mg Magnesium Hydroxide (Milk Of Magnesia) 30 ml PO Q12H PRN PRN Reason: Constipation Last Admin: 04/30/17 10:49 Dose: 30 ml Metformin HCl (Glucophage Xr) 500 mg PO DAILY [facility] Last Admin: 05/08/17 07:57 Dose: 500 mg Metoprolol Succinate (Toprol Xl) 50 mg PO DAILY [facility] Last Admin: 05/08/17 07:57 Dose: 50 mg Ptom Carbamazepine Er 200 Mg Cap 200 mg PO BID [facility] Last Admin: 04/28/17 16:26 Dose: Not Given Ptom Carbamazepine Er 200 Mg Cap 200 mg PO BID@0800,1999 [facility] Last Admin: 05/08/17 07:59 Dose: 200 mg Nystatin (Nystatin Crm) 0 gm TOP BID [facility] Nystatin (Nystatin Crm) 0 gm TOP BID [facility] Last Admin: 05/08/17 07:58 Dose: 1 applic Ondansetron HCl (Zofran) 4 mg IV Q6H PRN PRN Reason: Nausea/Vomiting Ondansetron HCl (Zofran Odt) 4 mg PO Q4H PRN PRN Reason: Nausea/Vomiting Last Admin: 05/05/17 19:47 Dose: 4 mg Sertraline HCl (Zoloft) 50 mg PO BEDTIME [facility] Last Admin: 05/07/17 21:37 Dose: 50 mg Sodium Chloride (Saline Flush) 10 ml FLUSH ASDIRECTED PRN PRN Reason: Keep Vein Open Temazepam (Restoril) 15 mg PO BEDTIME PRN PRN Reason: Sleep - Exam General: Reports: Alert, Oriented HEENT: Reports: Mucous Membr. Moist/[place] Neck: Reports: Supple Lungs: Reports: Clear to Auscultation, Normal Respiratory Effort Cardiovascular: Reports: Regular Rate, Regular Rhythm GI/Abdominal Exam: Normal Bowel Sounds, Soft, Non-Tender Skin: Reports: Warm, Dry Psy/Mental Status: Reports: Labile Mood *Q Meaningful Use (DIS) - VTE *Q VTE Criteria *Q: VTE Anticoagulation Contraindications: Medical/Procedure Contrai - Stroke *Q Stroke Criteria *Q: - AMI *Q AMI Criteria *Q:
== END 2017-05-08 10:55 | DRG 948 ==
LOC: CC.MS 14:53 → UNDOADMIN 14:53
PROVIDERS: ADMIT Family Medicine; ATTEND Family Medicine
DX: R53.1 Weakness (principal); R78.81 Bacteremia; I10 Essential (primary) hypertension; E11.65 Type 2 diabetes mellitus with hyperglycemia; N31.9 Neuromuscular dysfunction of bladder, unspecified; E03.9 Hypothyroidism, unspecified; G50.0 Trigeminal neuralgia; E78.5 Hyperlipidemia, unspecified; Z88.8 Allergy status to other drugs, medicaments and biological substances; Z79.84 Long term (current) use of oral hypoglycemic drugs; Z79.4 Long term (current) use of insulin; Z79.899 Other long term (current) drug therapy; H54.7 Unspecified visual loss; Z86.711 Personal history of pulmonary embolism; M19.90 Unspecified osteoarthritis, unspecified site
CPT/HCPCS: 36415; 80048; 80053; 82962; 85025; 86140; 97110-GP; 97162-GP; 97530-GP; A9270-GY; J1815-GY

== ENCOUNTER 2019-10-09 22:55 | Emergency (ER) | payer MEDICARE, OTHER ==
[2019-10-09] MEDS ORDERED: cefTRIAXone 1 GM Vial IVPUSH ONE (23:35)
[2019-10-09 23:37] LABS: CHLORIDE,CL 99 mEq/L (98-106); SODIUM,NA 137 mEq/L (136-145)
[2019-10-09] MEDS ORDERED: Iopamidol 755 Mg/ML 100 ML Bottle IVPUSH ONE (23:42)
[2019-10-09] MEDS: Sodium Chloride 0.9% 1,000 ML IV SCH (23:42)
--- NOTE | 2019-10-09 23:45 | EDM.PDOC ---
ED HPI GENERAL MEDICAL PROBLEM - General Chief Complaint: General Stated Complaint: weakness Time Seen by Provider: 10/09/19 23:16 Source of Information: Reports: Family History Limitations: Reports: No Limitations - History of Present Illness INITIAL COMMENTS - FREE TEXT/NARRATIVE: Esthela is an 83 yo female who presents to ER per [facility] for increasing weakness. Has not been as alert or conversive over the last 2 days and is worsening. Minimal verbal responses which is unlike her per son. Was diagnosed with bladder cancer about 3 weeks ago, had the tumor removed and was due to start radiation on Monday. Plan was for her to be admitted to the intermediate in [place] tomorrow due to the need for 2 weeks of radiation. She typically is in a wheelchair all day, eats minimal solid foods. Did have her Ensure today which is her typical oral intake most days. Son is unaware of any fever. Patient is lethargic but oriented to person and place. Does answer minimal questions. Son unaware of any cough, nausea or vomiting. Is normally incontinent of urine. Son relates that a week ago, father was able to transfer patient to and from car by himself. On Monday, it took 2 of them to transfer and she is even more weak now. Onset: Gradual Duration: Day(s):, Getting Worse Location: Reports: Generalized Associated Symptoms: Reports: Confusion, Loss of Appetite, Weakness. Denies: Chest Pain, Cough, Fever/Chills, Nausea/Vomiting, Shortness of Breath - Related Data Allergies Allergy/AdvReac Type Severity Reaction Status Date / Time meperidine [From Demerol] Allergy Nausea Verified 10/10/19 00:28 Home Meds: Home Meds Levothyroxine [Synthroid] 100 mcg PO DAILY 04/15/17 [History] Lisinopril 40 mg PO DAILY 04/15/17 [History] metFORMIN HCl [Metformin ER Osmotic] 500 mg PO DAILY 04/15/17 [History] Insulin Aspart [Novolog Flexpen] 7 unit SQ TIDMEALS 04/25/17 [History] Metoprolol Succinate [Toprol Xl] 50 mg PO DAILY 04/25/17 [History] Sertraline [Zoloft] 50 mg PO BEDTIME #30 tablet 05/08/17 [Rx] Amitriptyline [Elavil] 25 mg PO BEDTIME 10/10/19 [History] Cholecalciferol (Vitamin D3) [Vitamin D3] 2,000 units PO DAILY 10/10/19 [History] Docusate Sodium [Colace] 200 mg PO DAILY 10/10/19 [History] Folic Acid/Vit B Complex and C [Super B Complex Tablet] 1 tab PO DAILY 10/10/19 [History] Insulin Aspart [NovoLOG] 7 units SQ TID 10/10/19 [History] Latanoprost/Pf [Latanoprost 0.005% Eye Drop] 1 drop EYELF BEDTIME 10/10/19 [History] Potassium Chloride 10 mg PO DAILY 10/10/19 [History] Tolterodine Tartrate 2 mg PO BID 10/10/19 [History] polyethylene glycoL 3350 [Miralax] 17 gm PO DAILY 10/10/19 [History] Past Medical History HEENT History: Reports: Impaired Vision Cardiovascular History: Reports: Blood Clots/VTE/DVT, High Cholesterol, Hypertension Respiratory History: Reports: PE Genitourinary History: Reports: Retention, Urinary, Urinary Incontinence Musculoskeletal History: Reports: Arthritis Endocrine/Metabolic History: Reports: Diabetes, Type II, Hypothyroidism Hematologic History: Reports: Blood Transfusion(s) - Past Surgical History GI Surgical History: Reports: Appendectomy, Cholecystectomy Musculoskeletal Surgical History: Reports: Knee Replacement Social & Family History - Family History Family Medical History: Noncontributory - Tobacco Use Smoking Status *Q: Former Smoker - Caffeine Use Caffeine Use: Reports: Coffee ED ROS GENERAL - Review of Systems Review Of Systems: See Below (ROS obtained per son) Constitutional: Reports: Malaise, Weakness, Fatigue, Decreased Appetite. Denies: Fever, Chills HEENT: Denies: Ear Pain, Rhinitis, Sinus Problem, Throat Pain Respiratory: Denies: Shortness of Breath, Cough Cardiovascular: Reports: Edema Endocrine: Reports: Fatigue GI/Abdominal: Reports: Abdominal Pain. Denies: Nausea, Vomiting : Reports: Incontinence, Other (son relates urine has been very dark as of late.) Skin: Reports: Pallor, Bruising Neurological: Reports: Confusion, Weakness ED EXAM, GENERAL - Physical Exam Exam: See Below Exam Limited By: Altered Mental Status General Appearance: Lethargic Eye Exam: Bilateral Eye: Other (pupils 5 mm, sluggish) Ears: Normal External Exam, Normal TMs Nose: Normal Inspection, Normal Mucosa, No Blood Throat/Mouth: Other (mucous membranes are dry) Head: Normocephalic Neck: Normal Inspection, Supple, Non-Tender Respiratory/Chest: Lungs Clear. No: Respiratory Distress Cardiovascular: Tachycardia GI/Abdominal: Distended, Tender Extremities: Other (lower extremities are flaccid, chronic concern. Edema 1+ pitting. Multiple bruises noted to lower legs.) Neurological: Oriented (person and place), Slow to Respond Psychiatric: Flat Affect Skin Exam: Pallor Course - Vital Signs Last Recorded V/S: Last Vital Signs Temp 97.6 F 10/10/19 01:28 Pulse 133 H 10/10/19 01:28 Resp 31 H 10/10/19 01:28 BP 115/71 10/10/19 01:28 Pulse Ox 96 10/10/19 01:28 - Orders/Labs/Meds Orders: Active Orders 24 hr Category Date Time Status EKG Documentation Completion [RC] STAT Care 10/09/19 23:25 Active Abdomen Pelvis w Cont [CT] Stat Exams 10/09/19 23:27 Stop Req Chest 1V Frontal [CR] Stat Exams 10/09/19 23:53 Ordered Head wo Cont [CT] Stat Exams 10/09/19 23:45 Ordered CULTURE BLOOD [BC] Stat Lab 10/09/19 23:55 Received CULTURE BLOOD [BC] Stat Lab 10/10/19 00:25 Results CULTURE URINE [RM] Routine Lab 10/09/19 23:50 Received Sodium Chloride 0.9% [Normal Saline] 1,000 ml Med 10/09/19 23:45 Active IV ASDIRECTED Blood Culture x2 Reflex Set [OM.PC] Stat Oth 10/09/19 23:35 Ordered Medication Orders Sodium Chloride (Normal Saline) 1,000 mls @ 150 mls/hr IV ASDIRECTED ABUNDIO Last Admin: 10/10/19 01:19 Dose: 999 mls/hr Documented by: LUIS ALBERTO Infusion: 10/10/19 01:19 Dose: 999 mls/hr Documented by: LUIS ALBERTO Infusion: 10/10/19 00:35 Dose: 999 mls/hr Documented by: LUIS ALBERTO Infusion: 10/10/19 00:30 Dose: 500 mls/hr Documented by: LUIS ALBERTO Infusion: 10/09/19 23:51 Dose: 250 mls/hr Documented by: LUIS ALBERTO Admin: 10/09/19 23:42 Dose: 150 mls/hr Documented by: LUIS ALBERTO Labs: Laboratory Tests 10/09/19 10/09/19 10/09/19 Range/Units 23:16 23:16 23:18 WBC 59.6 H* (5.0-10.0) 10^3/uL RBC 4.49 (4.00-5.50) 10^6/uL Hgb 12.0 (12.0-16.0) g/dL Hct 38.8 (37.0-47.0) % MCV 86.4 (82.0-94.0) fL MCH 26.7 L (27.0-32.0) pg MCHC 30.9 L (33.0-38.0) g/dL RDW Coeff of [place] 17.1 H (11.0-15.0) % Plt Count 504 H (150-400) 10^3/uL Add Manual Diff Yes Neutrophils % (Manual) 86 H (35-85) % Band Neutrophils % 12 H (0-5) % Lymphocytes % (Manual) 2 L (21-55) % Absolute Neutrophils 58.41 H (1.80-7.00) 10^3/uL Lymphocytes # (Manual) 1.19 (1.00-4.80) 10^3/uL Sodium 137 (136-145) mEq/L Potassium 4.7 (3.5-5.0) mEq/L Chloride 99 (98-106) mEq/L Carbon Dioxide 22 (21-32) mmol/L BUN 52 H D (7-18) mg/dL Creatinine 2.3 H D (0.6-1.0) mg/dL Est Cr Clr Drug Dosing TNP Estimated GFR (MDRD) 20 L (>=60) mL/min Glucose 396 H* D (75-99) mg/dL Lactic Acid 6.0 H (0.4-2.0) mmol/L Calcium 10.0 (8.4-10.1) mg/dL Total Bilirubin 0.8 (0.0-1.0) mg/dL AST 26 (15-37) U/L ALT 32 (12-78) U/L Alkaline Phosphatase 312 H (46-116) U/L Troponin I < 0.017 (0.00-0.06) ng/mL C-Reactive Protein 23.0 H (0.2-0.8) mg/dL Total Protein 6.9 (6.4-8.2) g/dL Albumin 1.8 L (3.4-5.0) g/dL Urine Color (YELLOW) Urine Appearance (CLEAR) Urine pH (4.5-8.0) Ur Specific [place] (1.003-1.020) Urine Protein (NEGATIVE) mg/dL Urine Glucose (UA) (NEGATIVE) mg/dL Urine Ketones (NEGATIVE) mg/dL Urine Occult Blood (NEGATIVE) Urine Nitrite (NEGATIVE) Urine Bilirubin (NEGATIVE) Urine Urobilinogen (0.2-1.0) EU/dL Ur Leukocyte Esterase (NEGATIVE) Urine RBC (0-5) /HPF Urine WBC (0-5) /HPF Urine Bacteria (NOT SEEN) /HPF 10/09/19 Range/Units 23:53 WBC (5.0-10.0) 10^3/uL RBC (4.00-5.50) 10^6/uL Hgb (12.0-16.0) g/dL Hct (37.0-47.0) % MCV (82.0-94.0) fL MCH (27.0-32.0) pg MCHC (33.0-38.0) g/dL RDW Coeff of [place] (11.0-15.0) % Plt Count (150-400) 10^3/uL Add Manual Diff Neutrophils % (Manual) (35-85) % Band Neutrophils % (0-5) % Lymphocytes % (Manual) (21-55) % Absolute Neutrophils (1.80-7.00) 10^3/uL Lymphocytes # (Manual) (1.00-4.80) 10^3/uL Sodium (136-145) mEq/L Potassium (3.5-5.0) mEq/L Chloride (98-106) mEq/L Carbon Dioxide (21-32) mmol/L BUN (7-18) mg/dL Creatinine (0.6-1.0) mg/dL Est Cr Clr Drug Dosing Estimated GFR (MDRD) (>=60) mL/min Glucose (75-99) mg/dL Lactic Acid (0.4-2.0) mmol/L Calcium (8.4-10.1) mg/dL Total Bilirubin (0.0-1.0) mg/dL AST (15-37) U/L ALT (12-78) U/L Alkaline Phosphatase (46-116) U/L Troponin I (0.00-0.06) ng/mL C-Reactive Protein (0.2-0.8) mg/dL Total Protein (6.4-8.2) g/dL Albumin (3.4-5.0) g/dL Urine Color Brown (YELLOW) Urine Appearance Turbid (CLEAR) Urine pH 5.5 (4.5-8.0) Ur Specific [place] >= 1.030 H (1.003-1.020) Urine Protein >=300 H (NEGATIVE) mg/dL Urine Glucose (UA) 100 H (NEGATIVE) mg/dL Urine Ketones 15 H (NEGATIVE) mg/dL Urine Occult Blood Large H (NEGATIVE) Urine Nitrite Negative (NEGATIVE) Urine Bilirubin Large H (NEGATIVE) Urine Urobilinogen 1.0 (0.2-1.0) EU/dL Ur Leukocyte Esterase Large H (NEGATIVE) Urine RBC Packed H (0-5) /HPF Urine WBC >100 H (0-5) /HPF Urine Bacteria Many H (NOT SEEN) /HPF Meds: Medications Generic Name Dose Route Start Last Admin Trade Name Freq PRN Reason Stop Dose Admin Sodium Chloride 1,000 mls @ 150 mls/hr 10/09/19 23:45 10/10/19 01:19 Normal Saline IV 999 mls/hr ASDIRECTED ABUNDIO Administration Discontinued Medications Generic Name Dose Route Start Last Admin Trade Name Freq PRN Reason Stop Dose Admin Ceftriaxone Sodium 1 gm 10/09/19 23:35 10/09/19 23:42 Rocephin IVPUSH 10/09/19 23:36 1 gm ONETIME ONE Administration Iopamidol 100 ml 10/09/19 23:42 10/10/19 01:22 [id number] (76%) IVPUSH 10/09/19 23:43 Not Given ONETIME ONE - Re-Assessments/Exams Free Text/Narrative Re-Assessment/Exam: 10/10/[address] head done, chest xray done. Labs all noted. Discussed with son. Has been doctoring with [facility], would like transferred to [address] One call contacted. Spoke with Dr. Grant, hospitalist. Agreed to accept the patient in transfer. IV fluids infusing wide open at this time as blood pressure did drop to 80/57. Life flight arranged. Discussed with son. 0030-Blood pressure improved. Risks and benefits of patient transfer discussed with son. Risks of transfer include worsening condition, aircraft crash, possible . Benefits of transfer include higher level of care facility, critical care monitoring and specialty interventions. risks of non transfer include lack of specialized care/treatment, worsening of condition and possible . Benefits of non transfer include care close to home in a more familiar environment. Son agrees to transfer patient. 10/10/19 01:33 Patient more alert. blood pressure has remained 110s/70s now. Departure - Departure Time of Disposition: 00:57 Disposition: DC/Tfer to [facility] 02 Condition: Serious Clinical Impression: UTI, Urinary tract infectious disease, Sepsis - Discharge Information *PRESCRIPTION DRUG MONITORING PROGRAM REVIEWED*: No *COPY OF PRESCRIPTION DRUG MONITORING REPORT IN PATIENT SIMON: No Forms: ED Department Discharge Additional Instructions: Transfer life flight to Dr. Grant at [facility]. Sepsis Event Note (ED) - Focused Exam Vital Signs: Vital Signs Temp Pulse Resp BP Pulse Ox 10/10/19 01:28 97.6 F 133 H 31 H 115/71 96 10/10/19 01:13 97.8 F 131 H 31 H 110/71 97 10/10/19 00:58 98 F 131 H 35 H 119/68 97 10/10/19 00:43 98 F 136 H 35 H 101/80 96 10/10/19 00:28 97.6 F 136 H 35 H 80/57 L 97 10/10/19 00:13 98 F 134 H 37 H 101/72 96 10/09/19 23:58 97.9 F 128 H 28 H 108/76 96 10/09/19 23:43 97.9 F 136 H 34 H 112/80 98 10/09/19 23:28 97.8 F 130 H 32 H 107/82 98 10/09/19 23:13 97.5 F 139 H 38 H 110/76 97 10/09/19 22:58 97.7 F 150 H 38 H 102/76 99 - My Orders Last 24 Hours: My Active Orders 10/09/19 23:25 EKG Documentation Completion [RC] STAT 10/09/19 23:27 Abdomen Pelvis w Cont [CT] Stat 10/09/19 23:35 Blood Culture x2 Reflex Set [OM.PC] Stat 10/09/19 23:45 Head wo Cont [CT] Stat Sodium Chloride 0.9% [Normal Saline] 1,000 ml IV ASDIRECTED 10/09/19 23:50 CULTURE URINE [RM] Routine 10/09/19 23:53 Chest 1V Frontal [CR] Stat 10/09/19 23:55 CULTURE BLOOD [BC] Stat 10/10/19 00:25 CULTURE BLOOD [BC] Stat - Assessment/Plan Last 24 Hours: My Active Orders 10/09/19 23:25 EKG Documentation Completion [RC] STAT 10/09/19 23:27 Abdomen Pelvis w Cont [CT] Stat 10/09/19 23:35 Blood Culture x2 Reflex Set [OM.PC] Stat 10/09/19 23:45 Head wo Cont [CT] Stat Sodium Chloride 0.9% [Normal Saline] 1,000 ml IV ASDIRECTED 10/09/19 23:50 CULTURE URINE [RM] Routine 10/09/19 23:53 Chest 1V Frontal [CR] Stat 10/09/19 23:55 CULTURE BLOOD [BC] Stat 10/10/19 00:25 CULTURE BLOOD [BC] Stat
[2019-10-10] MEDS: Sodium Chloride 0.9% 1,000 ML IV SCH (01:19)
== END 2019-10-10 01:54 ==
LOC: CC.ED 22:55
DX: A41.9 Sepsis, unspecified organism (principal); N39.0 Urinary tract infection, site not specified; I10 Essential (primary) hypertension; E11.9 Type 2 diabetes mellitus without complications; E03.9 Hypothyroidism, unspecified; Z88.5 Allergy status to narcotic agent; Z79.4 Long term (current) use of insulin; Z79.899 Other long term (current) drug therapy; Z87.891 Personal history of nicotine dependence
CPT/HCPCS: 36415; 51702; 70450; 71045; 80053; 81001; 83605; 84484; 85025; 86140; 87040; 87077; 87086; 87088; 87186; 93005; 96361; 96374; 99284; 99285-25; J0696; J7030